=== PATIENT | male | born 1950 | race African-American/Black ===

== ENCOUNTER 2018-04-27 11:06 | Emergency (ER) | payer OTHER, MEDICARE ==
[2018-04-27 11:19] VITALS: BP 126/73
[2018-04-27] MEDS ORDERED: METFORMIN500 M2 PO (11:24)
[2018-04-27] MEDS ORDERED: ASPIRINCHW 81MG PO (11:24)
[2018-04-27] MEDS ORDERED: HYDROCHLOROT12.5 MG PO (11:24)
[2018-04-27] MEDS ORDERED: PREDNISONE50 MG PO (11:35)
== END 2018-04-27 11:40 | disposition home or self-care (01) | DRG 556 ==
LOC: ED 11:06
DX: M25.562 Pain in left knee (principal); M25.561 Pain in right knee